=== PATIENT | female | born 1935 | race Caucasian/White ===

== ENCOUNTER 2016-05-30 11:21 | Observation (INO) | payer OTHER ==
[~2016-05-30] VITALS: Ht 160 cm; Wt 80.9 kg
[~2016-05-30 11:21] MED LIST: CEFPODOXIME PR100 MG PO; ZOFRAN8 MG PO
[2016-05-30 12:51] LABS: HEMATOCRIT 41.8 % (36.0-46.0); MCH 30.6 PG (29.0-34.0); MCHC 34.2 G/DL (30.0-36.0); MCV 89.3 FL (83-99); MEAN PLAT.VOLUME 9.5 uM^3 (9.5-12.4); PLATELET COUNT 345 K/uL (156-360); RBC DIS.WIDTH-SD 38.2 % (39-53); RED BLOOD COUNT 4.68 M/uL (3.80-5.20); WHITE BLOOD COUNT 8.8 K/uL (4.1-10.2)
[2016-05-30 13:09] LABS: CHLORIDE 107 mEq/L (99-109); POTASSIUM 3.6 mEq/L (3.7-5.4); SODIUM 141 mEq/L (136-147)
[2016-05-30 13:11] LABS: GLUCOSE 164 mg/dL (70-99)
[2016-05-30 13:12] LABS: ANION GAP 11 MEQ/L (2-14)
[2016-05-30 13:13] LABS: TOTAL BILIRUBIN 0.5 mg/dL (0.0-1.0)
[2016-05-30 13:15] LABS: ALKALINE PHOSPHATASE 90 IU/L (3-129); GFR ESTIMATE (CALCULATED) 33 mL/min/
[2016-05-30 13:16] LABS: UREA NITROGEN (BUN) 22 mg/dL (9-23)
[2016-05-30 13:56] LABS: ADD MIUA? YES; BILIRUBIN NEGATIVE; BLOOD SMALL; COLOR YELLOW ((YELLOW)); GLUCOSE (STRIP) NEGATIVE; KETONES 5; LEUKOCYTES NEGATIVE; NITRITE NEGATIVE; PROTEIN (STRIP) NEGATIVE; SPECIFIC GRAVITY 1.016 (1.000-1.030); UROBILINOGEN 0.2 MG/DL (0.2-1.0)
[2016-05-30 14:06] LABS: BACTERIA NONE SEEN /HPF; EPITHELIAL CELLS RARE /HPF; MUCUS TRACE /LPF; RED BLOOD CELLS 30-40 /HPF (0-5); UCUL ADDED? NO; WHITE BLOOD CELLS 0-5 /HPF (0-5)
[2016-05-30] MEDS ORDERED: ZOCOR20 MG PO (14:15)
[2016-05-30] MEDS ORDERED: VANTIN100 MG PO (14:15)
[2016-05-30] MEDS ORDERED: TOLTERODINE TART4 MG PO (14:16)
[2016-05-30] MEDS ORDERED: AZOR 10/40 M1 TABLET PO (14:16)
[2016-05-30] MEDS ORDERED: APRESOLINE50 MG PO (14:17)
[2016-05-30] MEDS ORDERED: FIBERCON625 MG PO (14:18)
[2016-05-30] MEDS ORDERED: COLACE100 MG PO (14:19)
[2016-05-30] MEDS ORDERED: TESSALON200 MG PO (14:19)
[2016-05-30] MEDS ORDERED: LO-DOSE ASPIRIN81 M2 PO (14:20)
[2016-05-30] MEDS ORDERED: CYANOCOBALAM1000 MCG PO (14:21)
[2016-05-30] MEDS ORDERED: VITAMIN D31000 UNIT PO (14:21)
[2016-05-30 17:36] VITALS: BP 160/73
[2016-05-30 19:22] VITALS: BP 147/67
[2016-05-30 20:39] LABS: INFLUENZA A VIRAL ANTIGEN NEGATIVE; INFLUENZA B VIRAL ANTIGEN NEGATIVE
[2016-05-30 23:21] VITALS: BP 139/63
[2016-05-31 04:02] VITALS: BP 143/64
[2016-05-31 06:29] LABS: HEMATOCRIT 39.3 % (36.0-46.0); MCH 29.3 PG (29.0-34.0); MCHC 32.3 G/DL (30.0-36.0); MCV 90.6 FL (83-99); MEAN PLAT.VOLUME 9.8 uM^3 (9.5-12.4); PLATELET COUNT 378 K/uL (156-360); RBC DIS.WIDTH-CV 12.3 % (11.8-14.6); RBC DIS.WIDTH-SD 40.6 % (39-53); RED BLOOD COUNT 4.34 M/uL (3.80-5.20)
[2016-05-31 06:50] LABS: ANION GAP 10 MEQ/L (2-14); CHLORIDE 104 MEQ/L (99-109); GFR ESTIMATE (CALCULATED) 39 mL/min/; GLUCOSE 121 mg/dL (70-99); SAMPLE HEMOLYSIS CHECK 0; SAMPLE ICTERIC CHECK 0; SAMPLE LIPEMIA CHECK 0; SODIUM 137 MEQ/L (136-147); UREA NITROGEN (BUN) 21 mg/dL (9-23)
[2016-05-31 08:53] VITALS: BP 173/77
[2016-05-31 11:46] VITALS: BP 167/73
[2016-05-31] MEDS ORDERED: PREDNISONE10 MG PO (12:38)
[2016-05-31] MEDS ORDERED: FLORASTOR250 MG PO (12:42)
[2016-05-31] MEDS ORDERED: LOSARTAN POTAS100 MG PO (12:44)
== END 2016-05-31 14:49 | disposition home health service (06) ==
LOC: EME 11:21 → EDOF 14:31 → 5WEST 17:05
PROVIDERS: Emergency Medicine; Internal Medicine
DX: J20.9 Acute bronchitis, unspecified (principal); R19.7 Diarrhea, unspecified; R10.13 Epigastric pain; I10 Essential (primary) hypertension; E78.5 Hyperlipidemia, unspecified; R26.81 Unsteadiness on feet
CPT/HCPCS: 71010; 74176; 80048; 80053; 81003; 85027; 87493; 87502; 94010; 94640; 94640 76; 94667; 94668; 94799; 99202; 99281; 99285; G0378; G8978 GP CJ; G8980 GP CI; G8987 GO CJ; G8988 CI; J1644; J2920; J7030

== ENCOUNTER 2016-09-09 12:27 | Emergency (ER) | payer OTHER ==
[~2016-09-09] VITALS: Ht 162.6 cm; Wt 70.2 kg
[~2016-09-09 12:27] MED LIST changes: +APRESOLINE50 MG PO; +AZOR 10/40 M1 TABLET PO; +COLACE100 MG PO; +CYANOCOBALAM1000 MCG PO; +FIBERCON625 MG PO; +FLORASTOR250 MG PO; +LO-DOSE ASPIRIN81 M2 PO; +LOSARTAN POTAS100 MG PO; +PREDNISONE10 MG PO; +TESSALON200 MG PO; +TOLTERODINE TART4 MG PO; +VANTIN100 MG PO; +VITAMIN D31000 UNIT PO; +ZOCOR20 MG PO
[2016-09-09 13:42] LABS: HEMATOCRIT 44.3 % (36.0-46.0); MCH 30.7 PG (29.0-34.0); MCHC 33.4 G/DL (30.0-36.0); MCV 91.9 FL (83-99); MEAN PLAT.VOLUME 9.6 uM^3 (9.5-12.4); PLATELET COUNT 314 K/uL (156-360); RBC DIS.WIDTH-CV 11.9 % (11.8-14.6); RBC DIS.WIDTH-SD 40.3 % (39-53); RED BLOOD COUNT 4.82 M/uL (3.80-5.20)
[2016-09-09 13:57] LABS: CHLORIDE 103 mEq/L (99-109); POTASSIUM 4.1 mEq/L (3.7-5.4); SODIUM 138 mEq/L (136-147)
[2016-09-09 13:59] LABS: GLUCOSE 159 mg/dL (70-99)
[2016-09-09 14:00] LABS: ANION GAP 12 MEQ/L (2-14)
[2016-09-09 14:03] LABS: GFR ESTIMATE (CALCULATED) 42 mL/min/; UREA NITROGEN (BUN) 19 mg/dL (9-23)
[2016-09-09 15:16] LABS: TROP-I INTERPRETATION NEGATIVE; TROPONIN-I < 0.01 ng/mL (0.0-0.30)
[2016-09-09 17:21] VITALS: BP 182/82
== END 2016-09-09 17:22 | disposition home or self-care (01) ==
LOC: EME 12:27
DX: J45.901 Unspecified asthma with (acute) exacerbation (principal); R51 Headache; E11.9 Type 2 diabetes mellitus without complications; E78.5 Hyperlipidemia, unspecified; I10 Essential (primary) hypertension; Z79.82 Long term (current) use of aspirin
CPT/HCPCS: 70450; 71020; 80048; 83880; 84484; 85027; 93005; 99281; 99284

== ENCOUNTER → 2016-10-14 | Outpatient (CLI) | payer OTHER ==
[2016-10-14 19:31] LABS: APPEARANCE CLEAR/COLORLESS
[2016-10-14 19:32] LABS: RED CELL AREA COUNTED 18; RED CELL COUNT 1 /MM^3 (0-1); RED CELL DILUTION 1; WBC AREA COUNTED 18; WBC DILUTION 1; WHITE CELL COUNT 4 /MM^3 (0-5); WHITE CELL RAW COUNT 7
[2016-10-14 19:33] LABS: CSF EOSINOPHILS ND % (0-25); MONONUCLEAR WBC'S ND % (50-90); POLYNUCLEAR WBC'S ND % (0-3)
[2016-10-16 01:29] LABS: HSV CSF Spec Source CSF (())
[2016-10-16 21:56] LABS: VZV SOURCE CSF (())
[2016-10-18 22:27] LABS: Albumin, Serum 4.2 g/dL (3.2-4.6); IgG Index, CSF 0.46 index (<0.66); Synthesis Rate IgG, CSF -2.4 mg/24 h (-9.9-3.3)
[2016-10-18 23:08] LABS: VARICELLA-ZOSTER VIRUS PCR+ <500 (<500)
== END | disposition home or self-care (01) ==
LOC: RAD 14:40
PROVIDERS: Physician Assistant
PROC: 009U3ZZ Drainage of Spinal Canal, Percutaneous Approach (ICD-10-PCS; principal; 2016-10-14)
DX: R40.0 Somnolence (principal); R41.0 Disorientation, unspecified
CPT/HCPCS: 62270; 77003; 82040 90; 82042 90; 82164 90; 82784 90; 82945; 83916 90; 84157; 86592 90; 86617 90; 86618 90; 87070; 87205; 87529 90; 87799 90; 89051

== ENCOUNTER → 2017-07-15 | Outpatient (CLI) | payer OTHER | END | disposition home or self-care (01) | DX: R13.12 Dysphagia, oropharyngeal phase (principal); G20 Parkinson's disease; Z87.19 Personal history of other diseases of the digestive system | CPT/HCPCS: 92611 GN; G8996 GN; G8997 GN; G8998 GN ==